=== PATIENT | female | born 1965 | race Caucasian/White ===

== ENCOUNTER 2016-02-24 19:27 | Emergency (ER) | payer OTHER ==
[2016-02-24] MEDS ORDERED: CEFTRIAXONE 1 GM VIAL ONE (20:31)
[2016-02-24] MEDS ORDERED: LIDOCAINE 1% MDV 20 ML ONE (20:31)
== END 2016-02-24 20:59 | disposition home or self-care (01) ==
LOC: ER 19:27
DX: N30.00 Acute cystitis without hematuria (principal)
CPT/HCPCS: 81001; 87077; 87088; 87186; 96372; 99283; J0696